=== PATIENT | female | born 2000 | race Caucasian/White ===

== ENCOUNTER 2019-02-15 03:37 | Emergency (ER) | payer OTHER, SELFPAY ==
[2019-02-08 12:57] VITALS: BMI 42.7
[2019-02-15 03:38] VITALS: BP 160/109; PULSE 116; RESP 18; TEMP 36.7; O2SAT 98; BMI 45.3
--- NOTE | 2019-02-15 03:48 | EKG12_ITS ---
Test Reason : CP Blood Pressure : / mmHG Vent. Rate : 113 BPM Atrial Rate : 113 BPM P-R Int : 140 ms QRS Dur : 078 ms QT Int : 368 ms P-R-T Axes : 057 058 049 degrees QTc Int : 504 ms Sinus tachycardia Otherwise normal ECG Confirmed by DAHLIA NG, HARISH ([id number]), art editor KEIRY WEBB ([id number] on 02/16/2019 11:49:13 AM Referred By: PRADEEP Confirmed By:HARISH VILLAGOMEZ MD
--- NOTE | 2019-02-15 03:59 | RAD_ITS ---
STUDY: X-RAY CHEST REASON FOR EXAM: Female, 18 years old. Chest pain and pain in left arm. History of anxiety. TECHNIQUE: Frontal and lateral views of the chest. COMPARISON: None. FINDINGS: The lungs are clear and expanded. There is no demonstrated pleural abnormality. Normal size heart. Normal mediastinum and elin. Normal visualized pulmonary arteries. Normal visualized aortic arch and descending thoracic aorta. Normal visualized thoracic spine. Normal visualized ribs, clavicles, and shoulders. There is no demonstrated abnormality of the visualized soft tissue structures of the upper abdomen. RAD/Chest PA and Lateral IMPRESSION: Normal x-ray examination of the chest. Electronically Signed: Francisco Morrison MD at 4:51 EDT , Service support ,
[2019-02-15] MEDS: LORazepam 0.5 MG Tablet PO (04:26)
[2019-02-15 04:36] LABS: Mucous, Urine 0 SEEN /hpf (<or=2+); Red Blood Cells-Urine 0 SEEN /hpf (0-5)
[2019-02-15 04:38] LABS: Color, Urine Yellow (Yellow); Glucose, Dipstick Normal (Normal); Leukocyte Esterase-Dipstick Negative /ul (Negative); Nitrite-Dipstick Negative (Negative); Occult Blood-Urine Negative /ul (Negative); Protein-Dipstick Negative (Negative); Urine Bilirubin Dipstick Negative (Negative); Urine Clarity Sl. Cloudy (Clear); Urine Urobilinogen Normal (Normal)
[2019-02-15 04:41] LABS: Internal QC Validated? YES +Cl - CLEAR BKGD; Pregnancy, Urine Negative Negative
--- NOTE | 2019-02-15 05:24 | ED.VIS.CHEST ---
History of Present Illness Chief Complaint: Hypertension Informant: Patient Narrative: Patient presenting for evaluation secondary to chest pain. Patient states that she was talking with some friends about 2 AM and she seemed to have a relatively sudden onset of chest pain. She describes this as a sharp type pain that went into her left shoulder and was associated with some feelings of lightheadedness. Patient states that associated with this there was a significant amount of anxiety, but she did not have any sort of recent anxiety provoking factors that she felt that would have necessarily caused this. Patient states that she will intermittently get chest pain, she states that she is very worried about cardiovascular disease, but she does not have any personal history or premature family history of predisposition to cardiovascular disease. Patient has a underlying history of polycystic ovarian syndrome for which she takes metformin as well as depression for which she is also medicated for. She does endorse that she has a history of a prolonged QT, she has an appointment coming with cardiology in the coming weeks, and it was thought that initially it was secondary to her antidepressive medications that she has this. She denies any history of DVT or PE, recent travel or surgery, hemoptysis, exogenous hormone use, or unilateral leg swelling. Past Medical History - Allergies and Home Meds Allergies/Adverse Reactions: Allergies bee venom protein (honey bee) Allergy (Verified 02/15/19 03:46) Anaphylaxis Primary Care Physician: Care Physician,No Primary [Primary Care Provider] - Past Medical History: - - Polycystic ovarian syndrome, ADHD, anxiety Smoking Status: Light Smoker (<10/day) Review of Systems All systems negative except as indicated Cardiovascular: Reports: Chest pain Physical Exam Vital Signs/Narrative: Vital Signs Temp Pulse Resp BP Pulse Ox 02/15/19 03:38 98.1 F 116 H 18 160/109 H 98 Inital Vital Signs reviewed: Yes General: Well nourished, Well developed, Obese, No Acute Distress Head: Normocephalic, Atraumatic Eyes: Perrl, EOMI ENT: Moist mucous membranes, No rhinorrhea Neck: Supple, Nontender Cardiovascular: Regular rate, No murmurs, Tachycardia, - - 2+ radial pulses and DP pulses bilaterally symmetric Respiratory: No distress, CTA bilaterally, Chest nontender Abdomen: Soft, Nontender, Nondistended, Normal bowel sounds Back: Nontender, Normal Inspection Extremities: Nontender, No edema Skin: Normal color, No rash Neurological: Alert, Oriented x3, Cranial nerves II-XII grossly intact, Normal Strength, Normal Sensation Psychological: Normal affect, Normal Mood Diagnostic/Tx/Re-eval Chest X-Ray - ED: 2 View, Read by ED Physician, Read by Radiologist, Normal - EKG Initial EKG Interpretation: - - Sinus tachycardia with a ventricular rate of 113. QTc interval is prolonged at [address] segments, upright T waves. No evidence of delta waves or Brugada morphology. - Medical Decision Making Patient presented secondary to chest pain and anxiety. Patient on physical exam was in the room trotting her leg and did seem significantly anxious she was given 0.5 mg of Ativan. An EKG obtained demonstrated some sinus tachycardia with the patient's prolonged QTC but no other evidence of acute ischemia, arrhythmia, right ventricular strain or other serious etiology. Patient had a PA lateral chest x-ray which by my personal interpretation as well as radiology is found to be negative. Repeat evaluation of the patient at 530 shows symptomatic improvement with improvement of the patient's heart rate. Patient has a low risk heart score, I do not believe that admission for chest pain is required. Patient also has no risk factors for DVT or PE, do not feel that that is the cause of her symptomatology at this point either. Patient was given reassurance, she does have follow-up with a tax manager cpa coming in the coming weeks for her prolonged QT. She was recommended to avoid any sort of new prescription medications until she has that follow-up appointment. Patient was discharged. ED Disposition - Plan for ED Patient: Disposition: Home or Assisted Living Diagnosis: Chest pain, Prolonged Q-T interval on ECG Instructions: CHEST PAIN, Uncertain Cause Additional Instructions: Followup with cardiology upon your return home for break
[2019-02-15 05:26] LABS: Ketone-Dipstick 150 mg/dl (Negative)
[2019-02-15 05:27] LABS: Squamous Epithelial Cells - UA 5-10 SEEN /hpf (5-10); White Blood Cells 0-5 SEEN /hpf (0-5)
--- NOTE | 2019-02-15 05:27 | ED.RN ---
DR FERNÁNDEZ MADE AWARE OF URINE KETONES 150.
[2019-02-15 05:28] LABS: Bacteria 2+ /hpf (None Seen)
[2019-02-15 05:47] VITALS: BP 129/98; PULSE 105; RESP 16; O2SAT 100
== END 2019-02-15 05:48 | disposition home or self-care (01) ==
PROVIDERS: Emergency Provider Emergency Medicine
DX: R07.9 Chest pain, unspecified (principal); F32.9 Major depressive disorder, single episode, unspecified; E28.2 Polycystic ovarian syndrome; F17.200 Nicotine dependence, unspecified, uncomplicated
CPT/HCPCS: 71046; 81001; 81025; 93005; 99283